=== PATIENT | male | born 1945 | race Caucasian/White ===

== ENCOUNTER 2018-09-20 08:47 | Outpatient (CLI) | payer MEDICARE, OTHER, SELFPAY ==
[2018-09-20 12:02] LABS: Abs Immature Grans 0.01 k/cumm (0.0-0.09); Absolute Basophil Count 0.04 k/cumm (0.0-0.2); Absolute Eosinophil Count 0.28 k/cumm (0.0-0.7); Absolute Lymphocyte Count 1.62 k/cumm (1.2-3.4); Absolute Monocyte Count 0.91 k/cumm (0.11-0.7); Absolute Neutrophil Count 4.61 k/cumm (1.2-6.7); Basophils % 0.5; Eosinophils % 3.7; HCT 41.9 % (40.0-50.0); HGB 14.6 g/dL (13.5-17.5); Immature Grans % 0.1; Lymphocytes % 21.7; Mean Corp. HGB Concentration 34.8 g/dL (32.0-36.0); Mean Corpuscular Hemoglobin 31.7 pg (27.0-33.0); Mean Corpuscular Volume 90.9 fL (80-95); Mean Platelet Volume 11.1 fL (8.0-11.0); Monocytes % 12.2; Neutrophils % 61.8; Platelet Count 285 x1000/uL (130-400); RBC 4.61 m/cumm (4.50-6.00); RBC Distribution Width 13.1 % (11.8-14.1); White Blood Cell Count 7.47 k/cumm (4.4-10.8)
[2018-09-20 12:15] LABS: ALT 25 U/L (12-78); AST 16 U/L (15-37); Albumin 4.1 g/dL (3.4-5.0); Alkaline Phosphatase 54 U/L (46-116); Anion Gap 4.9 mmol/L (3-11); BUN 15 mg/dL (7-18); Bilirubin, Total 0.7 mg/dL (0.2-1.0); CO2 32.1 mmol/L (21.0-32.0); CREATININE 0.96 mg/dL (0.70-1.30); Calcium 9.2 mg/dL (8.5-10.1); Chloride 97 mmol/L (98-107); Cholesterol 154 mg/dL (50-200); Glucose 89 mg/dL (70-100); HDL Cholesterol 48 mg/dL (40-60); LDL CHOLESTEROL 93 mg/dL (<100); Potassium 4.8 mmol/L (3.5-5.1); Sodium 134 mmol/L (136-145); Total Protein 6.7 g/dL (6.4-8.2); Triglyceride 88 mg/dL (30-150)
== END 2018-09-20 09:07 ==
LOC: LBO 08:50 → LOS 09:51
PROVIDERS: PCP Internal Medicine; Visit Provider Internal Medicine Interventional Cardiology
DX: I10 Essential (primary) hypertension (principal); E78.5 Hyperlipidemia, unspecified
CPT/HCPCS: 36415; 80053; 80061; 83721; 85025

== ENCOUNTER 2018-11-11 09:38 | Outpatient (CLI) | payer MEDICARE, OTHER, SELFPAY | END 2018-11-11 09:58 | LOC: RT 09:39 | PROVIDERS: PCP Internal Medicine; Visit Provider Internal Medicine Interventional Cardiology | DX: I25.10 Atherosclerotic heart disease of native coronary artery without angina pectoris (principal); Z95.818 Presence of other cardiac implants and grafts; I10 Essential (primary) hypertension; I71.9 Aortic aneurysm of unspecified site, without rupture | CPT/HCPCS: 93005; 93010; 99213 ==

== ENCOUNTER 2019-09-30 03:05 | Outpatient (CLI) | payer MEDICARE, OTHER, SELFPAY ==
[2019-09-30 10:20] LABS: HCT 41.9 % (40.0-50.0); HGB 14.3 g/dL (13.5-17.5); Mean Corp. HGB Concentration 34.1 g/dL (32.0-36.0); Mean Corpuscular Hemoglobin 30.8 pg (27.0-33.0); Mean Corpuscular Volume 90.3 fL (80-95); Mean Platelet Volume 10.8 fL (8.0-11.0); Platelet Count 226 x1000/uL (130-400); RBC 4.64 m/cumm (4.50-6.00); RBC Distribution Width 12.9 % (11.8-14.1); White Blood Cell Count 5.92 k/cumm (4.4-10.8)
[2019-09-30 10:50] LABS: ALT 19 U/L (16-63); AST 14 U/L (15-37); Albumin 3.9 g/dL (3.4-5.0); Alkaline Phosphatase 50 U/L (46-116); BUN 12 mg/dL (7-18); Bilirubin, Total 0.7 mg/dL (0.2-1.0); CREATININE 0.82 mg/dL (0.70-1.30); Calcium 9.1 mg/dL (8.5-10.1); Calculated LDL 94 mg/dL; Chloride 102 mmol/L (98-107); Cholesterol 157 mg/dL (<200); Glucose 93 mg/dL (74-106); HDL Cholesterol 42 mg/dL (40-60); Potassium 4.2 mmol/L (3.5-5.1); Sodium 141 mmol/L (136-145); Total Protein 6.3 g/dL (6.4-8.2); Triglyceride 107 mg/dL (<150)
== END 2019-09-30 03:25 ==
PROVIDERS: PCP Internal Medicine; Visit Provider Internal Medicine
DX: I10 Essential (primary) hypertension (principal); E78.5 Hyperlipidemia, unspecified; I25.10 Atherosclerotic heart disease of native coronary artery without angina pectoris; F10.21 Alcohol dependence, in remission; F32.9 Major depressive disorder, single episode, unspecified
CPT/HCPCS: 36415; 80053; 80061; 85027

== ENCOUNTER 2020-10-29 01:03 | Outpatient (CLI) | payer MEDICARE, OTHER, SELFPAY ==
[2020-10-29 12:58] LABS: CREATININE 0.85 mg/dL (0.70-1.30); Calculated LDL 65 mg/dL (<100); Cholesterol 122 mg/dL (<200); HDL Cholesterol 45 mg/dL (40-60); Potassium 4.2 mmol/L (3.5-5.1); Triglyceride 61 mg/dL (<150)
== END 2020-10-29 01:23 ==
PROVIDERS: PCP Nurse Practitioner; Visit Provider Nurse Practitioner
DX: I10 Essential (primary) hypertension (principal); E78.5 Hyperlipidemia, unspecified; I25.10 Atherosclerotic heart disease of native coronary artery without angina pectoris
CPT/HCPCS: 36415; 80061; 82565; 84132

== ENCOUNTER 2020-11-17 03:41 | Outpatient (CLI) | payer MEDICARE, OTHER, SELFPAY ==
[2020-11-19 14:40] LABS: PSA, Ultrasensitive <0.01 ng/mL (<= 6.5)
== END 2020-11-17 03:42 | disposition home or self-care (01) ==
LOC: LOS 03:41
PROVIDERS: PCP Nurse Practitioner; Visit Provider Nurse Practitioner
DX: C61 Malignant neoplasm of prostate (principal)
CPT/HCPCS: 36415; 84153; 84154

== ENCOUNTER 2021-10-26 03:12 | Outpatient (CLI) | payer MEDICARE, OTHER, SELFPAY ==
[2021-10-26 12:40] LABS: Anion Gap 5.1 mmol/L (3-11); BUN 15 mg/dL (7-18); CO2 31.9 mmol/L (21.0-32.0); CREATININE 0.9 mg/dL (0.70-1.30); Calculated LDL 73 mg/dL (<100); Chloride 104 mmol/L (98-107); Cholesterol 143 mg/dL (<200); Glucose 91 mg/dL (74-106); HDL Cholesterol 50 mg/dL (40-60); Potassium 4.4 mmol/L (3.5-5.1); Sodium 141 mmol/L (136-145); Triglyceride 104 mg/dL (<150)
[2021-10-28 11:45] LABS: PSA, Ultrasensitive <0.01 ng/mL (<= 6.5)
== END 2021-10-26 03:13 | disposition home or self-care (01) ==
LOC: LBO 03:12
PROVIDERS: PCP Nurse Practitioner; Visit Provider Nurse Practitioner
DX: C61 Malignant neoplasm of prostate (principal); I10 Essential (primary) hypertension; I71.2 Thoracic aortic aneurysm, without rupture
CPT/HCPCS: 36415; 80048; 80061; 84153

== ENCOUNTER 2023-02-27 02:47 | Outpatient (CLI) | payer MEDICARE, OTHER, SELFPAY ==
[2023-02-27 12:45] LABS: HCT 38.6 % (40.0-50.0); MCH 31.3 pg (27.0-33.0); MCHC 33.7 % (32.0-36.0); MCV 93 fL (80-95); MPV 11.2 fL (8.0-11.0); Platelet Count 234 10^3/uL (130-400); RBC 4.15 10^6/uL (4.36-5.78); RDW 13.2 % (11.8-14.1); RDW-SD 45.1 fL; WBC 6.07 10^3/uL (4.4-10.8)
[2023-02-27 13:13] LABS: ALT 25 U/L (16-63); AST 19 U/L (15-37); Albumin 3.6 g/dL (3.4-5.0); Alkaline Phosphatase 68 U/L (46-116); Anion Gap 5.1 mmol/L (3-11); BUN 16 mg/dL (7-18); Bilirubin, Total 0.5 mg/dL (0.2-1.0); CO2 31.9 mmol/L (21.0-32.0); CREATININE 0.9 mg/dL (0.70-1.30); Calculated LDL 57 mg/dL (<100); Chloride 103 mmol/L (98-107); Cholesterol 114 mg/dL (<200); Estimated GFR 87.42 (mL/min/1.73m2); Glucose 96 mg/dL (74-106); HDL Cholesterol 47 mg/dL (40-60); Potassium 4.4 mmol/L (3.5-5.1); Sodium 140 mmol/L (136-145); Total Protein 6.7 g/dL (6.4-8.2); Triglyceride 53 mg/dL (<150)
== END 2023-02-27 02:48 | disposition home or self-care (01) ==
LOC: LOS 02:47
PROVIDERS: PCP Nurse Practitioner Family; Visit Provider Nurse Practitioner Family
DX: E78.5 Hyperlipidemia, unspecified; I10 Essential (primary) hypertension; I25.10 Atherosclerotic heart disease of native coronary artery without angina pectoris; I71.20 Thoracic aortic aneurysm, without rupture, unspecified
CPT/HCPCS: 36415; 80053; 80061; 85027

== ENCOUNTER 2024-03-18 08:32 | Outpatient (CLI) | payer MEDICARE, OTHER, SELFPAY ==
--- NOTE | 2024-03-18 08:30 | RT.EKG_ITS ---
APPROVED REPORT Exam: Resting ECG Reason for Exam: CAD Patient Location: O HR:55 bpm ECG Measurements Heart Rate 55 AXIS MS 200 P -20 QRSd 140 QRS -23 QT 444 T 114 QTc 425 Conclusion Sinus rhythm...normal P axis, V-rate 50- 99 Left bundle branch block...QRSd>120, broad/notched R
== END 2024-03-18 08:33 | disposition home or self-care (01) ==
LOC: DI.CARD 08:33
PROVIDERS: PCP Nurse Practitioner Family; Visit Provider Internal Medicine Cardiovascular Disease
DX: I25.10 Atherosclerotic heart disease of native coronary artery without angina pectoris (principal)
CPT/HCPCS: 93010

== ENCOUNTER → 2024-03-18 12:53 | Outpatient (BNVA) | payer MEDICARE, OTHER, SELFPAY | PROVIDERS: PCP Nurse Practitioner Family; Referring Provider Nurse Practitioner Family; Visit Provider Internal Medicine Cardiovascular Disease | DX: I71.21 Aneurysm of the ascending aorta, without rupture (principal); I44.7 Left bundle-branch block, unspecified; I25.10 Atherosclerotic heart disease of native coronary artery without angina pectoris | CPT/HCPCS: 93005; 99203 ==

== ENCOUNTER → 2024-04-08 01:52 | Outpatient (CLI) | payer MEDICARE, OTHER, SELFPAY ==
--- NOTE | 2024-04-08 12:31 | DI.US_ITS ---
APPROVED REPORT EXAM: Comprehensive 2D, Doppler, and color-flow Echocardiogram Patient Location: Out-Patient Supervisor [employer]: Cata Dasilva RDCS (AE) Indications: LV function, Dilated aortic root, Heart disease, Aneurysm ascending aorta Other Information Study Quality: Good Conclusion Normal left wall thickness and chamber size. Ejection fraction is 55 to 60%. Wall motion is normal Normal right ventricular size and function Both atria are normal in size Aortic valve is trileaflet with trace regurgitation Normal mitral valve with mild to moderate regurgitation Normal tricuspid valve with moderate regurgitation. 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 The left ventricular systolic function is normal. The left ventric ular ejection fraction is within the normal range. There is normal left ventricular wall thickness. T here is normal LV segmental wall motion. There is no ventricular septal defect visualized. LVEF is 57 %. Right Ventricle The right ventricle is normal size. The right ventricular systolic function is normal. Atria The left atrium size is normal. The right atrium size is normal. The interatrial septum is intact wit h no evidence for an atrial septal defect. Aortic Valve The Aortic valve is trileaflet There is no aortic valvular stenosis. Trace aortic regurgitation. Mitral Valve The mitral valve is normal in structure. No evidence of mitral valve stenosis. Mild to moderate hillary l regurgitation. Tricuspid Valve The tricuspid valve is normal in structure. There is no tricuspid valve stenosis. Moderate tricuspid regurgitation. The RVSP is 28.6 mmHg. Pulmonic Valve The pulmonary valve is normal in structure. There is no pulmonic valvular stenosis. Trace to mild pul manoj regurgitation. Great Vessels Aortic root is severely dilated. The ascending aorta is severely dilated. Aortic arch is not well vis ualized. IVC is normal in size and collapses >50% with inspiration. Pericardium There is no pericardial effusion. 2D Dimensions IVSD d PLAX 1.23 cm M: 0.6-1.2 Ao Root d 5.10 cm M: 3.1 - 3.7 LVPW d PLAX 1.20 cm M: 0.6 - 1.2 Ao Asc Diam d 4.51 cm M: 2.6 - 3.4 LVID d PLAX 5.08 cm M: 4.2 - 5.8 LVDs 3.59 cm M: 2.5 - 4.0 LV EF Teichholz 55.9 % FS 29.30 % LV EDV (Teich) 122.6 mL LV ESV (Teich) 54.1 mL M-Mode TAPSE 2.45 cm (M/F) >1.7 Auto EF LV EDV A4C 131.8 mL LV EDV A2C 120.6 mL LV EDV BP 129.2 mL LV ESV A4C 59.9 mL LV ESV A2C 51.6 mL LV ESV BP 55.1 mL LVEF(%) A4C 54.6 % LVEF(%) A2C 57.2 % LVEF(%) BP 57.3 % LV SV A4C 71.9 ml LV SV A2C 69.0 ml LV SV BP 74.1 ml LV CO A4C 3.7 L/min LV CO A2C 3.6 L/min LV CO BP 3.7 L/min HR A4C 52.03 BPM HR A2C 52.03 BPM LV EDV Index (BP) LA Volume LA Length A4C 5.2 cm LA Length A2C 5.3 cm LA Area A4C s 17.54 cm2 LA Area A2C s 18.96 cm2 LA Vol A4C A-L 50.43 mL LA Vol A2C A-L 57.39 mL LA Vol Biplane A-L 54.5 mL LA Vol/BSA A4C A-L LA Vol/BSA A2C A-L LA Vol/BSA BP A-L 29.5 mL/m2 LA Vol A4C MOD 47.2 mL LA Vol A2C MOD 53.3 mL LA Vol BP MOD 50.7 mL RA Volume RA Area A4C 17.0 cm2 RA ESV A4C (A-L) 47.0mL RA Vol/BSA A4C A-L RA Length A4C 5.2 cm RA ESV A4C (MOD) 45.7mL LV Diastology MV E' medial 0.045 (>0.07 m/s) MV E Vmax 0.54 (0.4-1.3 m/s) MV E/E' MED 11.94 (<14) MV A Vmax 0.90 (0.4-1.3 m/s) MV E' lateral 0.062 (>0.1 m/s) E/A Ratio 0.6 MV E/E' LAT 8.82 (<14) MV E' Average 0.054 m/s MV E/E'(average) 10.15 Aortic Valve AoV Vmax 1.27 m/s LVOT Vmax 0.99 m/s AoV Peak Grad 6.4 mmHg LVOT Peak Grad 3.9 mmHg AoV Area (Vmax) 2.48 cm2 LVOT VTI 0.264 m AoV VTI 0.348 m LVOT Mean Grad 2.5 mmHg AoV Mean Valerio. 0.90 m/s LVOT SV 83.78 mL AoV Mean Grad 3.7 mmHg LVOT Diam s 2.00 cm AoV Area (VTI) 2.41 cm2 Velocity Ratio 0.78 Mitral Valve MV DT 547 (160-240 msec) MV Vmax TIPS 0.88 m/s MV Mean Grad 1.1 (<2mmHg) MV VTI 0.336 m Pulmonary Valve PV Vmax 1.02 (0.5-1.5 m/s) RVOT Vmax 0.57 m/s PV Peak Grad 4.2 mmHg RVOT Peak Gr. 1.3 mmHg PV Mean Valerio 0.68 m/s RVOT VTI 0.152 m PV Mean Grad 2.2 mmHg RVOT Mean Gr. 0.7 mmHg Tricuspid Valve RA Pressure 3.00 mmHg TR Vmax 2.53 m/s TV S' 0.16 m/s TR Peak Grad 25.5 mmHg RVSP (TR) 28.6 mmHg
== END ==
PROVIDERS: PCP Nurse Practitioner Family; Visit Provider Internal Medicine Cardiovascular Disease
DX: I25.10 Atherosclerotic heart disease of native coronary artery without angina pectoris; I71.21 Aneurysm of the ascending aorta, without rupture; I08.1 Rheumatic disorders of both mitral and tricuspid valves
CPT/HCPCS: 93306; 82565

== ENCOUNTER → 2024-04-14 02:47 | Outpatient (CLI) | payer MEDICARE, OTHER, SELFPAY ==
--- NOTE | 2024-04-14 07:00 | DI.CT_ITS ---
Exam(s) CT CHEST W EXAM: CT CHEST W CLINICAL HISTORY: Check ascending aorta,F/U THORACIC AORTIC ANEURYSM,i71.21 TECHNIQUE: Imaging Protocol: Axial computed tomography images with coronal and sagittal reformatted images were created and reviewed CONTRAST MATERIAL: Intravenous: Omnipaque 350contrast volume:80 mL. COMPARISON: CT CTA THORAX from 11/16/2014 CT CHEST WITHOUT CONTRAST from 11/16/2015 FINDINGS: Tracheobronchial tree: Patent where visualized. No bronchiectasis. Pulmonary parenchyma: Note is made of an azygos lobe. No acute infiltrates. No suspicious pulmonary nodules are present. No architectural distortion. Mediastinum and Ankita: No dominant adenopathy or fluid collection. The esophagus is unremarkable. Thyroid gland: There is a multinodular thyroid gland. There is a 1.8 cm nodule in the right lobe. N onemergent thyroid ultrasound is recommended for further evaluation. Pleura: No effusion or pneumothorax. Heart: Cardiomegaly. Coronary artery calcifications are present. No pericardial effusion. Aorta: The aortic root measures 5 x 4.8 cm. The ascending thoracic aorta measures 4.7 x 4.7 cm. Ath erosclerotic calcification is present. No dissection is present. Pulmonary arteries: Due to the timing of the bolus, pulmonary artery opacification is suboptimal for evaluation of pulmonary emboli. No large central pulmonary embolus is present. Upper abdomen: Unremarkable. Lymph nodes: Within normal limits. Bones: Within normal limits for the patient's age. Soft tissues: Unremarkable. IMPRESSION: 1. The ascending thoracic aorta measures 5 cm maximally. Atherosclerosis is present. No evidence of dissection. 2. Multinodular thyroid gland. Nonemergent thyroid ultrasound is recommended for further evaluation. 3. No acute pulmonary process. Unexpected findings RADIATION DOSE DELIVERED: 476.8mGy.cm Total DLP DATA REPOSITORY: All CT scans at this facility are submitted to the National Radiology Data Registry (NRDR) Dose Index Registry (DIR) with the [employer] ([employer]). RADIATION OPTIMIZATION: All CT scans at this facility use at least one of these dose optimization te chniques: automated exposure control; mA and/or kV adjustment per patient size (includes targeted exa ms where dose is matched to clinical indication); or iterative reconstruction.
[2024-04-14 08:24] LABS: CREATININE 0.9 mg/dL (0.70-1.30); Estimated GFR 86.88 (mL/min/1.73m2)
[2024-04-14] MEDS: Omnipaque 350 MG/ML 500 ML BTL-Imaging package 80 ML IJ (08:51)
[2024-04-14] MEDS: Normal Saline Flush 10 ML SYR IVP (08:52)
== END ==
PROVIDERS: PCP Nurse Practitioner Family; Visit Provider Internal Medicine Cardiovascular Disease
DX: Z01.812 Encounter for preprocedural laboratory examination (principal); I71.21 Aneurysm of the ascending aorta, without rupture
CPT/HCPCS: 71260; 82565

== ENCOUNTER → 2024-05-13 01:44 | Outpatient (CLI) | payer MEDICARE, OTHER, SELFPAY ==
--- NOTE | 2024-05-13 07:00 | DI.US_ITS ---
Exam(s) US THYROID EXAM: US THYROID CLINICAL HISTORY: thyroid nodules seen on recent chest CT,e04.1. TECHNIQUE: Ultrasound thyroid performed using standard protocol. COMPARISON: CT CHEST WITH CONTRAST from 02/19/2013 CT CHEST WITHOUT CONTRAST from 11/16/[address] CHEST W from 04/14/2024 FINDINGS: ISTHMUS: 2 mm RIGHT LOBE: Size: 5.9 x 2.8 x 2.6 cm Echogenicity: Diffusely heterogeneous nodular Vascularity: Normal. Nodules: multiple nodules. Exact borders of the dominant nodule seen at the mid to lower pole are di fficult to determine due to heterogeneity. Approximate measurements are 2.3 x 2.5 x 2.8 cm. Mixed s olid and cystic, isoechoic, taller than wide, smoothly lobulated, without echogenic foci. TR 4 LEFT LOBE: Size: 4.0 x 1.7 x 1.3 cm Echogenicity: Heterogeneous Vascularity: Normal. Nodules: No suspicious nodules. Upon review of previous CT examinations of the chest from 2012 and 2015, the right thyroid the nodule is unchanged in size. IMPRESSION: Multiple right-sided thyroid nodules. The largest nodule corresponds to a TI- RADS 4 lesion but appe ars stable in size when compared to exams back to 2013. DATA REPOSITORY:
== END ==
PROVIDERS: PCP Nurse Practitioner Family; Visit Provider Nurse Practitioner Family
DX: E04.1 Nontoxic single thyroid nodule (principal); E04.2 Nontoxic multinodular goiter
CPT/HCPCS: 76536

== ENCOUNTER → 2024-09-23 10:42 | Outpatient (BNVA) | payer MEDICARE, OTHER, SELFPAY | PROVIDERS: PCP Nurse Practitioner Family; Referring Provider Nurse Practitioner Family; Visit Provider Internal Medicine Cardiovascular Disease | DX: I25.10 Atherosclerotic heart disease of native coronary artery without angina pectoris (principal); I71.21 Aneurysm of the ascending aorta, without rupture | CPT/HCPCS: 99214 ==

== ENCOUNTER 2025-04-29 01:49 | Outpatient (CLI) | payer MEDICARE, OTHER, SELFPAY ==
--- NOTE | 2025-04-29 06:49 | DI.CT_ITS ---
Exam(s) CT CHEST WO EXAM: CT CHEST WO CLINICAL HISTORY: Check aorta,coronary atherosclerosis of [place] coronary vessel,thoracic. TECHNIQUE: Imaging protocol: Axial computed tomography images were obtained and coronal and sagittal reformatted images were created and reviewed. Lung Computer Aided Detection (CAD) was utilized. COMPARISON: CT CHEST WITH CONTRAST from 02/19/[address] CHEST W from 04/14/2024 US US THYROID from 05/13/2024 FINDINGS: Tracheobronchial tree: Patent where visualized. No bronchiectasis is present. Pulmonary parenchyma: No consolidation or dominant measurable mass. No architectural distortion. There are no suspicious pulmonary nodules. Mediastinum and Ankita: No dominant adenopathy or fluid collection. The esophagus is unremarkable. Thyroid gland: There is a stable right lower pole thyroid nodule. Thyroid ultrasound was performed on 05/13/2024. Pleura: No effusion or pneumothorax. Heart: The heart is not dilated. Three vessel coronary artery calcification is present. No pericardial effusion. Aorta: The ascending thoracic aorta measures 5.0 x 4.9 cm. This is unchanged compared to the prior examination. Atherosclerotic calcification is present. Upper abdomen: Unremarkable. Lymph nodes: Within normal limits. Soft tissues: Unremarkable. Bones:Within normal limits for the patient's age. IMPRESSION: 1. Stable 5 x 4.9 cm ascending thoracic aortic aneurysm. 2. No acute pulmonary process. RADIATION DOSE DELIVERED: 208.84mGy.cm Total DLP 208.84mGy.cm Total DLP DATA REPOSITORY: All CT scans at this facility are submitted to the National Radiology Data Registry (NRDR) Dose Index Registry (DIR) with the [employer] (ACR). RADIATION OPTIMIZATION: All CT scans at this facility use at least one of these dose optimization techniques: automated exposure control; mA and/or kV adjustment per patient size (includes targeted exams where dose is matched to clinical indication); or iterative reconstruction.
== END 2025-04-29 02:09 ==
LOC: DI 01:49
PROVIDERS: PCP Nurse Practitioner Family; Visit Provider Internal Medicine Cardiovascular Disease
DX: I71.21 Aneurysm of the ascending aorta, without rupture (principal)
CPT/HCPCS: 71250

== ENCOUNTER → 2025-06-02 09:44 | Outpatient (BNVA) | payer MEDICARE, OTHER, SELFPAY | PROVIDERS: PCP Nurse Practitioner Family; Referring Provider Nurse Practitioner Family; Visit Provider Internal Medicine Cardiovascular Disease | DX: I25.10 Atherosclerotic heart disease of native coronary artery without angina pectoris (principal); I71.21 Aneurysm of the ascending aorta, without rupture | CPT/HCPCS: 99213 ==